=== PATIENT | female | born 1980 ===

== ENCOUNTER 2016-09-29 01:55 | Emergency (ER) | payer BC ==
[2016-09-29] MEDS ORDERED: CIPROFLOXACIN 500 MG TABLET ONE (02:26)
[2016-09-29] MEDS ORDERED: HYDROCODONE/ACETAMINOPHEN 5/325MG TABLET ONE (02:26)
== END 2016-09-29 02:41 | disposition home or self-care (01) ==
LOC: ED 01:55
DX: N39.0 Urinary tract infection, site not specified (principal)
CPT/HCPCS: 99283 ×2; A9270 ×2